=== PATIENT | female | born 1975 | race African-American/Black ===

== ENCOUNTER 2017-12-11 09:36 | Emergency (ER) | payer SELFPAY ==
[~2017-12-11] VITALS: Ht 172.7 cm; Wt 97.5 kg
[~2017-12-11 09:36] MED LIST: NAPR250T6 PO; OXYC-323 PO
[2017-12-11] MEDS ORDERED: fentaNYL PF VIAL 100 MCG/2 ML VIAL IV ONE (10:15)
--- NOTE | 2017-12-11 10:31 | RAD ---
Portable chest, 12/11/2017: HISTORY: Left-sided chest pain The heart size and pulmonary vascularity are normal. The lungs are clear. There is no evidence of pleural fluid. IMPRESSION: No acute cardiopulmonary abnormality is detected. Electronically signed by: Bird Oneil MD (12/11/2017 10:28 AM) [facility]
[2017-12-11 10:52] LABS: CALCIUM 9.1 mg/dL (8.5-10.1); GFR 73.9; POTASSIUM 3.9 mmol/L (3.5-5.1)
[2017-12-11 10:58] LABS: BASO % 0 % (0-3); EOS % 0 % (0-3); HEMATOCRIT 39.4 % (36.0-47.0); HEMOGLOBIN 13.3 g/dL (12.0-15.5); LYMPH # 1.1 x10^3/uL (1.0-4.8); LYMPH % 10 % (24-48); MEAN CORPUSCULAR HEMOGLOBIN 30 pg (25-35); MEAN CORPUSCULAR HGB CONC 34 g/dL (31-37); MEAN CORPUSCULAR VOLUME 89 fL (79-100); MONO # 0.8 x10^3/uL (0.0-1.1); MONO % 8 % (0-9); NEUT # 8.7 x10^3uL (1.8-7.7); NEUT % 81 % (31-73); PLATELET COUNT 318 x10^3/uL (140-400); RED BLOOD COUNT 4.41 x10^6/uL (3.50-5.40); RED CELL DISTRIBUTION WIDTH 16.5 % (11.5-14.5); WHITE BLOOD COUNT 10.7 x10^3/uL (4.0-11.0)
[2017-12-11 10:59] LABS: ALBUMIN 3.5 g/dL (3.4-5.0); ALBUMIN/GLOBULIN RATIO 0.9 (1.0-1.7); TOTAL BILIRUBIN 0.8 mg/dL (0.2-1.0); TOTAL PROTEIN 7.2 g/dL (6.4-8.2)
[2017-12-11 11:00] LABS: BILIRUBIN,URINE NEGATIVE (NEG); CLARITY,URINE CLEAR; COLOR,URINE YELLOW; NITRITE,URINE NEGATIVE (NEG); PROTEIN,URINE NEGATIVE (NEG-TRACE)
--- NOTE | 2017-12-11 11:14 | EKG ---
[facility] [address] [place] [address] Test Date: 2017-12-11 Test Time: 10:39:02 Pat Name: JOVANNI ISLAS Department: Room: Gender: F Postdoctoral Research Fellow: : 1975 Requested By: EVELYN MALLORY Order Number: [id number] Reading MD: Kayden Singleton MD Measurements Intervals [place] Rate: 78 P: 57 [place]: 172 QRS: -13 QRSD: 78 T: -35 QT: 356 QTc: 409 Interpretive Statements SINUS RHYTHM CONSIDER INFERIOR ISCHEMIA NON-SPECIFIC ST/T CHANGES Electronically Signed On 12-13-2017 12:20:09 CDT by Kayden Singleton MD
[2017-12-11] MEDS ORDERED: IOHEXOL 300 MG/ML 100ML VIAL. IV ONE (11:30)
[2017-12-11] MEDS ORDERED: CONTRAST GIVEN. MC PRN (11:30)
[2017-12-11 11:43] LABS: BACTERIA,URINE MANY /HPF (0-FEW); SQUAMOUS EPITHELIAL CELL,UR FEW /LPF
--- NOTE | 2017-12-11 12:10 | RAD ---
CT ANGIOGRAPHY CHEST Indication: ddimer elev, left chest pain, eval for pe
iv omni 300 75 mls
no previous
. Comparison: No comparison is available. Technique: After intravenous contrast administration, CT imaging was performed of the chest. MIP reconstructions were obtained. Exposure: One or more of the following individualized dose reduction techniques were utilized for this examination: 1. Automated exposure control 2. Adjustment of the mA and/or kV according to patient size 3. Use of iterative reconstruction technique. FINDINGS: Pulmonary arteries:No evidence of pulmonary embolism. Thoracic aorta: No aneurysm. Limited opacification due to bolus timing, could limit detection of a dissection. Thyroid gland:Visualized aspect is unremarkable. Lymph nodes:No significant enlargement Heart: No significant pericadial effusion. Esophagus: Unremarkable Pleural spaces: No significant effusion Lungs: There is some mild focal cystic change within the right upper lobe, along the surface of the minor fissure. Tiny blebs seen in the left lung. No consolidating infiltrate. Trachea and central airways: Patent Bones: No destructive process Upper abdomen: Slices through the upper abdomen are limited due to the technique .No obvious acute findings. IMPRESSION: 1. No evidence of pulmonary embolism or other acute abnormality. 2. Small area of cystic change at the right upper lobe, marginating the minor fissure, could be the result of focal honeycombing or emphysematous change, but the localized nature would be unusual. Electronically signed by: Evert Nava MD (12/11/2017 12:07 PM) [id number]
[2017-12-11 12:30] VITALS: BP 131/77
[2017-12-11] MEDS ORDERED: CEPH500C PO (12:55)
--- NOTE | 2017-12-11 14:01 | PHYS DOC ---
Past Medical History Past Medical History: No Pertinent History Past Surgical History: No Surgical History Alcohol Use: Rarely Drug Use: Marijuana Adult General Chief Complaint Chief Complaint: RIB PAIN HPI HPI Patient is a 42 year old female who is presenting with left flank pain she says it is just in her left upper quadrant just below her rib area. It is worse with coughing she has a dry cough she is feeling feverish she is having body aches no dysuria. She says it hurts more to take a deep breath as well the symptoms are sharp nonradiating no other exacerbating factors Review of Systems Review of Systems : Denies fever or chills [] Eyes: Denies change in visual acuity, redness, or eye pain [] HENT: Denies nasal congestion or sore throat [] Respiratory: Integument: Denies rash or skin lesions [] Neurologic: Denies headache, focal weakness or sensory changes [] Endocrine: Denies polyuria or polydipsia [] All other systems were reviewed and found to be within normal limits, except as documented in this note. Current Medications Current Medications Current Medications Medications (Trade) Dose Ordered Sig/Rosa Elena Start Time Stop Time Status Last Admin Dose Admin Ceftriaxone Sodium 50 ml @ 100 mls/hr 1X ONCE 12/11/17 12:00 12/11/17 12:29 DC 12/11/17 12:02 100 MLS/HR Fentanyl Citrate (Fentanyl 2ml Vial) 50 mcg 1X ONCE 12/11/17 10:15 12/11/17 10:16 DC 12/11/17 10:50 50 MCG Info (CONTRAST GIVEN -- Rx MONITORING) 1 each PRN DAILY PRN 12/11/17 11:30 12/11/17 13:09 DC Iohexol (Omnipaque 300 Mg/ml) 75 ml 1X ONCE 12/11/17 11:30 12/11/17 11:31 DC 12/11/17 11:30 75 ML Allergies Allergies Allergies Coded Allergies Type Severity Reaction Last Updated Verified No Known Drug Allergies 08/15/16 No Physical Exam Physical Exam Constitutional: Well developed, well nourished, no acute distress, non-toxic appearance. [] HENT: Normocephalic, atraumatic, bilateral external ears normal, oropharynx moist, no oral exudates, nose normal. [] Eyes: PERRLA, EOMI, conjunctiva normal, no discharge. [] Neck: Normal range of motion, no tenderness, supple, no stridor. [] Cardiovascular:Heart rate regular rhythm, no murmur [] Lungs & Thorax: There is reproducible chest wall tenderness noted left lower rib margin. Abdomen: Bowel sounds normal, soft, left upper quadrant tenderness, no masses, no pulsatile masses. [] Skin: Warm, dry, no erythema, no rash. [] Back: Mild left CVA tenderness] Extremities: No tenderness, no cyanosis, no clubbing, ROM intact, no edema. [] Neurologic: Alert and oriented X 3, normal motor function, normal sensory function, no focal deficits noted. [] Psychologic: Affect normal, judgement normal, mood normal. [] Current Patient Data Vital Signs Vital Signs Date Time Temp Pulse Resp B/P (MAP) Pulse Ox O2 Delivery O2 Flow Rate FiO2 12/11/17 10:03 100.6 81 20 154/94 (114) 100 Room Air 100.6 Lab Values Laboratory Tests Test 12/11/17 10:25 12/11/17 10:30 12/11/17 10:36 White Blood Count 10.7 x10^3/uL (4.0-11.0) Red Blood Count 4.41 x10^6/uL (3.50-5.40) Hemoglobin 13.3 g/dL (12.0-15.5) Hematocrit 39.4 % (36.0-47.0) Mean Corpuscular Volume 89 fL (79-100) Mean Corpuscular Hemoglobin 30 pg (25-35) Mean Corpuscular Hemoglobin Concent 34 g/dL (31-37) Red Cell Distribution Width 16.5 % (11.5-14.5) H Platelet Count 318 x10^3/uL (140-400) Neutrophils (%) (Auto) 81 % (31-73) H Lymphocytes (%) (Auto) 10 % (24-48) L Monocytes (%) (Auto) 8 % (0-9) Eosinophils (%) (Auto) 0 % (0-3) Basophils (%) (Auto) 0 % (0-3) Neutrophils # (Auto) 8.7 x10^3uL (1.8-7.7) H Lymphocytes # (Auto) 1.1 x10^3/uL (1.0-4.8) Monocytes # (Auto) 0.8 x10^3/uL (0.0-1.1) Eosinophils # (Auto) 0.0 x10^3/uL (0.0-0.7) Basophils # (Auto) 0.0 x10^3/uL (0.0-0.2) D-Dimer (Khushbu) 0.90 ug/mlFEU (0.00-0.50) H Sodium Level 139 mmol/L (136-145) Potassium Level 3.9 mmol/L (3.5-5.1) Chloride Level 103 mmol/L (98-107) Carbon Dioxide Level 29 mmol/L (21-32) Anion Gap 7 (6-14) Blood Urea Nitrogen 7 mg/dL (7-20) Creatinine 1.0 mg/dL (0.6-1.0) Estimated GFR (Cockcroft-Gault) 73.9 BUN/Creatinine Ratio 7 (6-20) Glucose Level 103 mg/dL (70-99) H Calcium Level 9.1 mg/dL (8.5-10.1) Total Bilirubin 0.8 mg/dL (0.2-1.0) Aspartate Amino Transferase (AST) 10 U/L (15-37) L Alanine Aminotransferase (ALT) 11 U/L (14-59) L Alkaline Phosphatase 62 U/L (46-116) Troponin I Quantitative < 0.017 ng/mL (0.000-0.055) Total Protein 7.2 g/dL (6.4-8.2) Albumin 3.5 g/dL (3.4-5.0) Albumin/Globulin Ratio 0.9 (1.0-1.7) L Lipase 156 U/L (73-393) Urine Collection Type Unknown Urine Color Yellow Urine Clarity Clear Urine pH 8.0 Urine Specific [place] 1.015 Urine Protein Negative mg/dL (NEG-TRACE) Urine Glucose (UA) Negative mg/dL (NEG) Urine Ketones (Stick) Negative mg/dL (NEG) Urine Blood Moderate (NEG) Urine Nitrite Negative (NEG) Urine Bilirubin Negative (NEG) Urine Urobilinogen Dipstick 1.0 mg/dL (0.2 mg/dL) Urine Leukocyte Esterase Large (NEG) Urine RBC 6-10 /HPF (0-2) Urine WBC 11-20 /HPF (0-4) Urine Squamous Epithelial Cells Few /LPF Urine Bacteria Many /HPF (0-FEW) POC Urine HCG, Qualitative Hcg negative (Negative) Laboratory Tests 12/11/17 10:25 Laboratory Tests 12/11/17 10:25 EKG EKG []EKG shows normal sinus rhythm there are T-wave inversions inferiorly no old EKG is noted for comparison. No other ischemic changes identified. QRS and QTC are normal. Interpreted me at time of encounter Radiology/Procedures Radiology/Procedures [] Impressions: IMPRESSION: 1. No evidence of pulmonary embolism or other acute abnormality. 2. Small area of cystic change at the right upper lobe, marginating the minor fissure, could be the result of focal honeycombing or emphysematous change, but the localized nature would be unusual. Electronically signed by: Evert Nava MD (12/11/2017 12:07 PM) [id number] DICTATED and SIGNED BY: EVERT NAVA MD DATE: 12/11/17 8508 Course & Med Decision Making Course & Med Decision Making Pertinent Labs and Imaging studies reviewed. (See chart for details) []42-year-old female presenting with left flank pain. Extensive differential diagnosis considered final diagnosis appears to be urinary tract infection there is no evidence of pulmonary embolism labs are otherwise unremarkable. There were some T-wave inversions in the inferior leads but this history is really not at all consistent with acute coronary syndrome the troponin is negative after several days of symptoms. Patient was given a perception for Keflex for UTI we did do some IV ceftriaxone in the emergency room as well. Dragon Disclaimer Dragon Disclaimer This electronic medical record was generated, in whole or in part, using a voice recognition dictation system. Departure Departure Impression: Primary Impression: Urinary tract infection Disposition: HOME, SELF-CARE Condition: STABLE Patient Instructions: Urinary Tract Infection Scripts Cephalexin (CEPHALEXIN) 500 Mg Capsule 1 CAP PO QID, #40 CAP Prov: EVELYN MALLORY MD 12/11/17 EVELYN MALLORY MD Dec 11, 2017 14:01
== END 2017-12-11 13:09 | disposition home or self-care (01) ==
LOC: ER 09:36
DX: N39.0 Urinary tract infection, site not specified (principal); R05 Cough; M79.10 Myalgia, unspecified site
CPT/HCPCS: 36415; 71045; 71275; 80053; 81001; 81025; 83690; 84484; 85025; 85379; 87086; 93005; 96365; 96375; 99285; J0690; J3010; Q9967

== ENCOUNTER 2019-04-18 05:15 | Emergency (ER) | payer SELFPAY ==
[~2019-04-18] VITALS: Ht 175.3 cm; Wt 89.1 kg
[~2019-04-18 05:15] MED LIST changes: +CEPH500C PO; -OXYC-323 PO; +OXYC1TAB15 PO
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
--- NOTE | 2019-04-18 05:52 | RAD ---
FINGER(S) LEFT Clinical Indication: Dislocation of finger. Comparison: None. Findings: The third PIP joint is dislocated. The middle phalanx is posteriorly dislocated in relation to the proximal phalanx with overriding of fracture fragments measuring 1 cm. The middle phalanx is displaced nearly a shaft length medially in relation to the proximal phalanx. An acute fracture is not definitely seen. There is soft tissue swelling overlying the dislocation. The mineralization is normal. Other bony articulations are maintained. IMPRESSION: Posterior dislocation of the third PIP joint. Electronically signed by: Luis Gonzalez MD (04/18/2019 5:49 AM) [id number]
[2019-04-18] MEDS ORDERED: TRAM-48 PO (05:53)
[2019-04-18] MEDS ORDERED: CEPH-264 PO (05:53)
[2019-04-18] MEDS ORDERED: LIDOCAINE 1% PF 2 ML VIAL. INJ ONE (06:00)
--- NOTE | 2019-04-18 06:08 | RAD ---
FINGER(S) LEFT Clinical Indication: Post reduction. Comparison: Left finger, 3 views, earlier same day. Findings: The dislocated third PIP joint has been reduced. The bony articulations now normal. No acute fracture near the PIP joint is seen. There is a punctate ossific body in the volar soft tissues at the level of the distal neck of the third middle phalanx. No donor site is seen. There is mild soft tissue swelling of the third finger. IMPRESSION: Successful reduction. Electronically signed by: Luis Gonzalez MD (04/18/2019 6:02 AM) [id number]
[2019-04-18 07:18] VITALS: BP 152/79
== END 2019-04-18 07:20 | disposition home or self-care (01) ==
LOC: ER 05:15
DX: S62.613A Displaced fracture of proximal phalanx of left middle finger, initial encounter for closed fracture (principal); F12.90 Cannabis use, unspecified, uncomplicated; F17.200 Nicotine dependence, unspecified, uncomplicated; Y08.89XA Assault by other specified means, initial encounter; Y93.89 Activity, other specified; Y92.89 Other specified places as the place of occurrence of the external cause; Y99.8 Other external cause status
CPT/HCPCS: 26770; 73140; 99284

== ENCOUNTER 2021-05-28 08:43 | Emergency (ER) | payer SELFPAY ==
[~2021-05-28] VITALS: Ht 170.2 cm; Wt 85.9 kg
[~2021-05-28 08:43] MED LIST changes: +CEPH-264 PO; +NAPR-699 PO; -NAPR250T6 PO; +TRAM-48 PO
[2021-05-28 08:50] VITALS: BP 151/80
[2021-05-28] MEDS ORDERED: IBUPROFEN 400 MG TABLET. PO ONE (09:00)
[2021-05-28] MEDS ORDERED: HYDROcodone/APAP 5/325MG 1 TAB TABLET PO ONE (09:00)
--- NOTE | 2021-05-28 09:13 | PHYS DOC ---
Past Medical History Past Medical History: No Pertinent History Past Surgical History: No Surgical History Smoking Status: Current Every Day Smoker Alcohol Use: Rarely Drug Use: Marijuana Adult General Chief Complaint Chief Complaint: KNEE INJURY HPI HPI Patient is a 46 year old female presenting to the emergency department for evaluation of right knee pain that she says started yesterday after she tripped and fell and landed directly on her right knee. She has an Davon bandage on and says that she gets frequent kneecap dislocations and usually she can reduce it herself but she was unable to reduce this dislocation on her own. Patient says she has not been able to ambulate on her right knee. She denies any distal weakness numbness or tingling she is in no acute distress. Review of Systems Review of Systems Constitutional: Denies fever or chills [] Musculoskeletal: + R knee joint pain Integument: Denies rash or skin lesions [] Neurologic: Denies headache, focal weakness or sensory changes [] All other systems were reviewed and found to be within normal limits, except as documented in this note. Current Medications Current Medications Current Medications Medications (Trade) Dose Ordered Sig/Rosa Elena Start Time Stop Time Status Last Admin Dose Admin Acetaminophen/ Hydrocodone Bitart (Lortab 5/325) 2 tab 1X ONCE 05/28/21 09:00 05/28/21 09:01 DC 05/28/21 09:10 2 TAB Ibuprofen (Motrin) 800 mg 1X ONCE 05/28/21 09:00 05/28/21 09:01 DC 05/28/21 09:10 800 MG Allergies Allergies Allergies Coded Allergies Type Severity Reaction Last Updated Verified No Known Drug Allergies 08/15/16 No Physical Exam Physical Exam Constitutional: Well developed, well nourished, no acute distress, non-toxic appearance. [] Skin: Warm, dry, no erythema, no rash. [] Back: No tenderness, no CVA tenderness. [] Extremities: Joint effusion noted on the right knee with limited range of motion due to pain with pain on anterior and posterior drawer test but no pain on Mercedes's. Neurologic: Alert and oriented X 3, normal motor function, normal sensory function, no focal deficits noted. [] Current Patient Data Vital Signs Vital Signs Date Time Temp Pulse Resp B/P (MAP) Pulse Ox O2 Delivery O2 Flow Rate FiO2 05/28/21 09:10 16 99 Room Air 05/28/21 08:50 100.0 80 151/80 (103) 100.0 EKG EKG [] Radiology/Procedures Radiology/Procedures [] Course & Med Decision Making Course & Med Decision Making I will check right knee x-ray treat pain and reassess. Patient's x-ray is abnormal with an effusion and joint body and I told her I suspect that she has a ligamentous prescription given her effusion pain and x- ray findings. Patient is neurovascular intact distally and her pain is improved here. I will have her placed in a knee immobilizer and have her on crutches I will treat her supportively as an outpatient told to follow with orthopedics and primary care provider soon as possible and come back to emergency department sooner with worsening pain neurologic changes or other general concerns. Patient aware and agreeable with plan and verbalized understanding of the above instructions. Dragon Disclaimer Dragon Disclaimer This electronic medical record was generated, in whole or in part, using a voice recognition dictation system. Departure Departure Impression: Primary Impression: Injury of ligament of right knee Additional Impressions: Right knee sprain Effusion, right knee Disposition: HOME / SELF CARE / HOMELESS Condition: STABLE Referrals: NO PCP (PCP) YUMIKO SMITH MD Patient Instructions: Knee Sprain Scripts Hydrocodone Bit/Acetaminophen (HYDROCODONE-APAP 5-325 ) 1 Tab Tablet 1 TAB PO PRN Q6HRS PRN for PAIN, #10 TAB 0 Refills Prov: JUSTIN CHRISTENSEN DO 05/28/21 Ibuprofen (IBUPROFEN) 800 Mg Tablet 800 MG PO Q8HRS PRN for INFLAMMATION for 7 Days, #21 TAB Prov: JUSTIN CHRISTENSEN DO 05/28/21 Problem Qualifiers JUSTIN CHRISTENSEN DO May 28, 2021 09:13
--- NOTE | 2021-05-28 09:21 | RAD ---
Right knee 3 views. HISTORY: Pain after a fall 3 views were taken of the right knee. There is osteoarthritis with joint space narrowing laterally. T here is hypertrophic spurring. There is a calcification cephalad to the knee anteriorly on the latera l view which could be a joint body in the suprapatellar bursa. There is spurring on the patella from arthritis. There is no acute fracture. IMPRESSION: 1. Osteoarthritis right knee. 2. Probable joint body. 3. No acute fracture. Electronically signed by: Alexander Garcia MD (05/28/2021 9:18 AM) [facility]
[2021-05-28] MEDS ORDERED: IBUP-1060 PO (09:38)
[2021-05-28] MEDS ORDERED: HYDR-2761 PO (09:38)
== END 2021-05-28 10:02 | disposition home or self-care (01) ==
LOC: ER 08:43
DX: S83.91XA Sprain of unspecified site of right knee, initial encounter (principal); M25.462 Effusion, left knee; F17.200 Nicotine dependence, unspecified, uncomplicated; W01.0XXA Fall on same level from slipping, tripping and stumbling without subsequent striking against object, initial encounter; Y93.89 Activity, other specified; Y92.89 Other specified places as the place of occurrence of the external cause; Y99.8 Other external cause status
CPT/HCPCS: 29505; 73562; 99284